=== PATIENT | female | born 1960 | race Caucasian/White ===

== ENCOUNTER 2018-03-23 09:30 | Day surgery (SDC) | payer MEDICAID, OTHER ==
[2018-03-23] MEDS ORDERED: ACETAMINOPHEN 500 MG TAB PO ONE (09:36)
[2018-03-23] MEDS ORDERED: LR 1,000 ML IV SCH (09:36)
[2018-03-23] MEDS ORDERED: ceFAZolin 2 GM/SWFI 2 GM/20 ML SYR IVP ONE (09:36)
[2018-03-23] MEDS ORDERED: EPINEPHrine 1 MG/ML INJ ONE (10:08)
[2018-03-23] MEDS ORDERED: EPINEPHrine 30 MG/30 ML MDV (0.1 MG/0.1 ML) ONE (10:08)
[2018-03-23] MEDS ORDERED: BUPIVACAINE 0.5% 30 ML SDV ONE ×2 (10:08→14:25)
[2018-03-23] MEDS ORDERED: ceFAZolin 2 GM/DEXTROSE 100 ML IV ONE (10:30)
[2018-03-23] MEDS ORDERED: LR 1,000 ML IV ONE (10:32)
--- NOTE | 2018-03-23 10:52 | PDANEPAE ---
ANE History of Present Illness right rtc tear ANE Past Medical History - Cardiovascular History Hx Hypertension: Yes Hx Arrhythmias: No Hx Chest Pain: No Hx Coronary Artery / Peripheral Vascular Disease: No Hx CHF / Valvular Disease: No Hx Palpitations: No - Pulmonary History Hx COPD: No Hx Asthma/Reactive Airway Disease: Yes Hx Recent Upper Respiratory Infection: No Hx Oxygen in Use at Home: No Hx Sleep Apnea: No Sleep Apnea Screening Result - Last Documented: Positive Pulmonary History Comment: HX OF ASTHMA NO ISSUES FOR MANY YEARS. PNEUMONIA 2013 - Neurologic History Hx Cerebrovascular Accident: No Hx Seizures: Yes Hx Dementia: No Neurologic History Comment: SEIZURE IN DURING TEEN YEARS. WAS ON RX FOR AWHILE. OFF RX FOR 10 YRS NO SEIZURE ACTIVITY FOR 30 YRS. - Endocrine History Hx Diabetes: No Hypothyroid: Yes Hyperthyroid: No Obesity: yes, severe Endocrine History Comment: HYPOTHYROID - Renal History Hx Renal Disorders: Yes Renal History Comment: REMOTE UTI'S - Liver History Hx Hepatic Disorders: No - Neurological & Psychiatric Hx Hx Neurological and Psychiatric Disorders: No - Cancer History Hx Cancer: No - Congenital Disorder History Hx Congenital Disorders: No - GI History Hx Gastrointestinal Disorders: Yes Gastrointestinal History Comment: HEARTBURN TAKES OTC - Other Health History Other Health History: PERIPHERAL NEUROPATHY. SEASONAL ALLERGIES NO ISSUES RECENTLY. MISSING TEETH. BRUISES EASILY - Chronic Pain History Chronic Pain: Yes (RT SHLDR) - Surgical History Prior Surgeries: D&C. RT WRIST LIGAMENT REPAIR ANE Review of Systems Review of systems is: negative Review of Systems: - Exercise capacity Exercise capacity: >=4 METS METS (RN): 4 METS ANE Patient History - Allergies Allergies/Adverse Reactions: No Known Drug Allergies Allergy (Verified 03/17/18 12:56) - Home Medications Home Medications: Gabapentin BID 03/17/18 [Last Taken 03/23/18] Ibuprofen PRN 03/17/18 [Last Taken 1 Week Ago ~03/16/18] Levothyroxine DAILY 03/17/18 [Last Taken 03/23/18] Lisinopril DAILY 03/17/18 [Last Taken 03/22/18] Prilosec DAILY 03/17/18 [Last Taken 03/23/18] - NPO status NPO Status: no food or drink >8 hours NPO Since - Liquids (Date): 03/22/18 NPO Since - Liquids (Time): 20:00 NPO Since - Solids (Date): 03/22/18 NPO Since - Solids (Time): 16:00 - Anes Hx Anes Hx: no prior problems - Smoking Hx Smoking Status: Never smoked - Alcohol Use Alcohol Use: None - Family Anes Hx Family Anes Hx: none ANE Labs/Vital Signs - Vital Signs Vital Signs: reviewed preoperatively; see RN documention for details Blood Pressure: 138/96 Heart Rate: 67 Respiratory Rate: 18 O2 Sat (%): 94 Height: 170.18 cm Weight: 117.48 kg ANE Physical Exam - Airway Neck exam: FROM Mallampati Score: Class 2 Mouth exam: poor dentition - Pulmonary Pulmonary: no respiratory distress - Cardiovascular Cardiovascular: regular rate and rhythym - ASA Status ASA Status: II ANE Anesthesia Plan Anesthesia Plan: general endotracheal anesthesia Regional Anesthesia: single shot NB (prev poor response to l/a, reserve PNB as rescue option)
[2018-03-23] MEDS ORDERED: MIDAZOLAM 2 MG/2 ML VIAL IVP ONE (10:55)
--- NOTE | 2018-03-23 11:08 | PDHPUP ---
History & Physical Update H&P update statement: This history and physical update is based on an assessment of the patient which was completed after admission or registration (within 24 hours), but prior to the surgery/procedure. H&P update: no change in patient's condition since H&P completed
[2018-03-23] MEDS ORDERED: PROPOFOL 200 MG/20 ML VIAL ONE (11:45)
[2018-03-23] MEDS ORDERED: ROCURONIUM 100 MG/10 ML VIAL ONE (11:45)
[2018-03-23] MEDS ORDERED: fentaNYL 100 MCG/2 ML INJ ONE ×4 (11:45→14:09)
[2018-03-23] MEDS ORDERED: LIDOCAINE 2% 100 MG/5 ML SYR ONE (11:45)
[2018-03-23] MEDS ORDERED: DEXAMETHASONE 4 MG/ML VIAL ONE (12:30)
[2018-03-23] MEDS ORDERED: SUGAMMADEX SODIUM 200 MG/2 ML VIAL IVP ONE ×2 (12:30→13:36)
[2018-03-23] MEDS ORDERED: ONDANSETRON 4 MG/2 ML VIAL ONE (12:30)
[2018-03-23] MEDS ORDERED: KETOROLAC 30 MG/1 ML SDV ONE (12:31)
[2018-03-23] MEDS ORDERED: HYDROCODONE/APAP 10/325 TAB PO PRN (13:55)
--- NOTE | 2018-03-23 13:57 | POSTOPPROG ---
Post Op Note Date of Operation: 03/23/18 Surgeon: Raymond Vargas [facility]: [facility] Anesthesiologist: severo Anesthesia: GET(General Endotracheal) Pre-op Diagnosis: right rtc tear Post-op Diagnosis: same Indication: same Procedure: repair right rtc Inf/Abcess present in the surg proc area at time of surgery?: No Depth: Deep Incisional (Fascial) EBL: 100-500
[2018-03-23] MEDS ORDERED: fentaNYL 100 MCG/2 ML INJ IVP PRN (14:06)
[2018-03-23] MEDS ORDERED: ALBUTEROL 3 ML DEYVIAL IH PRN (14:06)
[2018-03-23] MEDS ORDERED: NALOXONE HCL 0.4 MG/ML INJ IVP PRN (14:06)
[2018-03-23] MEDS ORDERED: ONDANSETRON 4 MG/2 ML VIAL IVP PRN (14:06)
[2018-03-23] MEDS ORDERED: oxyCODONE IR 5 MG TAB PO PRN (14:06)
[2018-03-23] MEDS ORDERED: PROMETHAZINE HCL 25 MG/ML INJ IVP PRN (14:06)
[2018-03-23] MEDS ORDERED: HYDROCODONE/APAP 5/325 TAB PO PRN (14:06)
[2018-03-23] MEDS ORDERED: ACETAMINOPHEN 500 MG TAB PO PRN (14:06)
--- NOTE | 2018-03-23 14:07 | POSTANESTH ---
Post Anesthetic Evaluation Cardiovascular Status: Normal, Stable Respiratory Status: Normal, Stable Level of Consciousness/Mental Status: Can Participate in Eval, Mildly Sleepy, Arousable Pain Control: Adequate, Prn Tx Ordered Nausea/Vomiting Control: Adequate, Prn Tx Ordered Complications Possibly Related to Anesthesia: None Noted
[2018-03-23] MEDS ORDERED: HYDROmorphONE/DILAUDID 1 MG/ML INJ ONE (14:09)
[2018-03-23] MEDS: HYDROmorphONE/DILAUDID 2 MG/ML INJ IVP PRN ×2 (14:16→14:24)
[2018-03-23 16:37] VITALS: BP 160/74
--- NOTE | 2018-03-24 06:40 | GOP ---
[f rep st] OPERATIVE REPORT DATE OF OPERATION: 03/23/2018 SURGEON: Raymond Vargas MD CONTRACT CLERK [employer]: Pierre Dudley, LEARNING AND DEVELOPMENT ADMINISTRATOR, [facility], who was a medical necessity for the entirety of the case. PREOPERATIVE DIAGNOSIS: Right shoulder rotator cuff tear impingement, biceps tendinopathy and labral fraying, as well as mild arthritis to the glenohumeral joint. POSTOPERATIVE DIAGNOSIS: Right shoulder rotator cuff tear impingement, biceps tendinopathy and karely l fraying, as well as mild arthritis to the glenohumeral joint. PROCEDURE PERFORMED: Right shoulder arthroscopy with open rotator cuff repair, open subacromial deco mpression, arthroscopic biceps tenotomy, arthroscopic labral debridement, limited. FINDINGS: INDICATIONS: The patient is a 57-year-old woman who has a moderate to large tear of her rotator cuff with retraction which measures approximately 3 cm in diameter. She has developed a slight arthritis to the glenohumeral joint, fraying of her labrum and biceps tendinopathy, as well. She has failed a ll attempts at conservative management. I have, therefore, recommended operative intervention. I jimenez ve outlined the surgical procedure, risks, benefits, and alternatives. She wished to proceed. Writt en consent was signed and placed in patient's chart. DESCRIPTION OF PROCEDURE: The patient was identified in the preanesthesia area. The right shoulder clearly demarcated as the operative site with indelible marker. She was given 2 g of Ancef intraveno usly en route to the operative suite. In the OR, general endotracheal anesthesia was administered. She was positioned in the beach chair position. All bony prominences were well padded, including the use of a neurological head pastry chef. Standard arthroscopic portal sites created across the anterior, posterior and lateral aspect of the shoulder and diagnostic arthroscopy ensued. The articular surfac e of the glenoid and humeral head demonstrated grade 2 chondral change diffusely with grade 3 chondra l change in the central vault of the glenoid. This was debrided in a limited fashion. The labrum wa s grossly frayed throughout. This was debrided in a limited fashion to a clean and stable edge aroun d the periphery. The biceps was truncated at the origin and allowed to retract. This stump was then cleared with the arthroscopic shaver, as well. Inferior articular recess was free of any loose fore ign debris. The rotator cuff was examined. There was a large regular tear through the distal upper subscapularis entirety of the supraspinatus and upper infraspinatus. The arthroscope was then introd uced into the subacromial position. Given the extensive nature of the tear, the decision was made to proceed rapidly with an open repair. The lateral portal was then converted to a mini open incision which was carried sharply through the skin and subcutaneous tissue, directly down to the acromion and deltoid. The deltoid was then elevated off the lateral margin of the acromion with cautery device a nd a self-retaining retractor placed. The subacromial decompression was performed with an osteotome to a clean and stable edge. This allowed excellent visualization of the underlying tear. The tear m argins were then freshened. A bony footprint was created. Using 3 bio SwiveLock anchors, 3 fiber ta pes and 1 fiber link, the rotator cuff was repaired to the bony footprint. Excellent stability was a chieved. This was taken through internal and external rotation and felt to be appropriate. The woun d was copiously irrigated. The deltoid repaired through bone holes with #1 FiberWire to the lateral edge of the acromion and the subcutaneous tissue closed using 0 Vicryl, 2-0 Monocryl, and skin staple s. The portal sites were closed using 4-0 nylon. Shoulder instilled with 30 cc of 0.5% Marcaine wit h epinephrine. Sterile dressing was applied followed by Cryo/Cuff and a shoulder immobilizer. The p atient was awakened, extubated, taken to the recovery room in good stable condition. An interscalene block was placed in the recovery room for postoperative pain relief. /[id number]/MODL
== END 2018-03-23 17:15 | disposition home or self-care (01) ==
LOC: FSGY 09:30
PROVIDERS: ATTEND Orthopaedic Surgery
PROC: 0LQ14ZZ Repair Right Shoulder Tendon, Percutaneous Endoscopic Approach (ICD-10-PCS; principal; 2018-03-23 11:30)
PROC: 0RNG4ZZ Release Right Acromioclavicular Joint, Percutaneous Endoscopic Approach (ICD-10-PCS; principal; 2018-03-23 11:30)
DX: M75.121 Complete rotator cuff tear or rupture of right shoulder, not specified as traumatic (principal); M75.21 Bicipital tendinitis, right shoulder; M24.811 Other specific joint derangements of right shoulder, not elsewhere classified
CPT/HCPCS: C1713; J0171; J0690; J1100; J1170; J1885; J2001; J2250; J2405; J2704; J3010